=== PATIENT | female | born 1935 | race Two or more races ===

== ENCOUNTER 2020-04-26 07:41 | Outpatient (CLI) | payer OTHER | END 2020-04-26 08:12 | disposition home or self-care (01) | LOC: NUCLEAR 07:41 | PROVIDERS: ATTEND Internal Medicine Cardiovascular Disease | DX: I25.119 Atherosclerotic heart disease of native coronary artery with unspecified angina pectoris (principal) | CPT/HCPCS: 78452; 93017; A9500; J0153 ==

== ENCOUNTER 2020-10-05 11:04 | Outpatient (CLI) | payer OTHER | END 2020-10-05 11:11 | disposition home or self-care (01) | LOC: LAB 11:04 | PROVIDERS: ATTEND Internal Medicine | DX: J90 Pleural effusion, not elsewhere classified (principal); E11.40 Type 2 diabetes mellitus with diabetic neuropathy, unspecified; N39.8 Other specified disorders of urinary system; E06.5 Other chronic thyroiditis; I11.0 Hypertensive heart disease with heart failure; D68.8 Other specified coagulation defects; R07.89 Other chest pain ==

== ENCOUNTER 2020-11-14 16:09 | Outpatient (CLI) | payer OTHER | END 2020-11-14 18:00 | disposition home or self-care (01) | LOC: LAB 16:09 | PROVIDERS: ATTEND Internal Medicine | DX: I11.9 Hypertensive heart disease without heart failure (principal); J90 Pleural effusion, not elsewhere classified ==